=== PATIENT | male | born 1995 ===

== ENCOUNTER 2020-01-12 03:16 | Inpatient (IN) | payer OTHER ==
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
[2020-01-12 04:35] LABS: ABS Basophils 0.1 10^3/ul (0-0.2); ABS Lymphocytes 1.3 10^3/ul (1.0-4.8); ABS Monocytes 0.6 10^3/ul (0-0.8); ABS Neutrophils 7.4 10^3/ul (1.5-7.7); Eosinophil % 0.4 %; Hematocrit 43 % (42-52); Hemoglobin 14.5 g/dL (14.0-18.0); Lymphocyte % 13.7 %; Mean Corpuscular HGB Conc 34 g/dL (31-36); Mean Corpuscular Hemoglobin 27 pg (27-31); Mean Corpuscular Volume 81 fL (80-94); Mean Platelet Volume 10.4 fL (7.4-10.4); Platelet Count 214 10^3/uL (150-450); Red Blood Count 5.33 10^6 /uL (4.18-5.48); Red Cell Distribution Width 15 % (10-15); White Blood Count 9.5 10^3/uL (3.5-10.8)
[2020-01-12 04:45] LABS: Urine Appearance Clear; Urine Bilirubin Negative (Negative); Urine Blood Negative (Negative); Urine Color Yellow; Urine Glucose Negative (Negative); Urine Ketones Negative (Negative); Urine Nitrite Negative (Negative); Urine Protein Negative (Negative); Urine Specific Gravity 1.008 (1.010-1.030); Urine Urobilinogen Negative (Negative)
[2020-01-12 04:56] LABS: ALT 17 U/L (7-52); AST 34 U/L (13-39); Acetaminophen < 15 mcg/mL; Albumin 4.7 g/dL (3.2-5.2); Albumin/Globulin Ratio 1.5 (1-3); Alcohol 118 mg/dL (<10); Alkaline Phosphatase 119 U/L (34-104); Anion Gap 11 mmol/L (2-11); BUN/Creatinine Ratio 14.1 (8-20); Blood Urea Nitrogen 13 mg/dL (6-24); CO2 Carbon Dioxide 23 mmol/L (22-32); Calcium 9.5 mg/dL (8.6-10.3); Chloride 106 mmol/L (101-111); EGFR African American 124.5 (>60); EGFR Non-African American 102.9 (>60); Globulin 3.1 g/dL (2-4); Glucose 90 mg/dL (70-100); Potassium 3.7 mmol/L (3.5-5.0); Salicylate < 2.50 mg/dL (<30); Sodium 140 mmol/L (135-145); Total Protein 7.8 g/dL (6.4-8.9)
[2020-01-12 05:01] LABS: Urine Benzodiazepine Screen None Detected (None Detect); Urine Opiates Screen None Detected (None Detect)
[2020-01-12 05:12] LABS: TSH (Thyroid Stimulating Horm) 3.59 mcIU/mL (0.34-5.60)
--- NOTE | 2020-01-12 08:31 | ED ---
Progress - Progress Note Progress Note: This patient was signed out from Dr. Masterson to Dr. Small at shift change at 0700, pending disposition, awaiting MHE. MHE reveals pt needs to be admitted. The patients condition is stable and will be admitted to the mental health facility at [facility] by Dr. Kimball. Course/Dx - Course Course Of Treatment: This patient was signed out from Dr. Masterson to Dr. Small at shift change at 0700, pending disposition, awaiting MHE. MHE reveals pt needs to be admitted. The patients condition is stable and will be admitted to the mental health facility at [facility] by Dr. Kimball. - Diagnoses Provider Diagnoses: ETOH abuse, Substance induced mood disorder Discharge ED - Sign-Out/Discharge Documenting (check all that apply): Patient Departure - Admit - Discharge Plan Condition: Stable Disposition: PSYCHIATRIC FACILITY-[facility] - Billing Disposition and Condition Condition: STABLE Disposition: Psychiatric Facility [facility] - Attestation Statements Document Initiated by Scribe: Yes Documenting Scribe: Quyen Youngblood Provider For Whom Sherie is Documenting (Include Credential): Billy Small MD Scribe Attestation: Quyen Hurley scribed for Billy Small MD on 01/12/20 at 1745. Scribe Documentation Reviewed: Yes Provider Attestation: The documentation as recorded by the Quyen salas accurately reflects the service I personally performed and the decisions made by Billy alfaro MD Status of Scribe Document: Viewed
[2020-01-12] MEDS ORDERED: Al Hydrox/Mg Hydrox/Simet LIQ* 30 ML UDC PO PRN (14:42)
[2020-01-12] MEDS ORDERED: Acetaminophen TAB* 325 MG PO PRN (14:42)
[2020-01-12] MEDS ORDERED: LORazepam TAB(*) 1 MG ONE (15:04)
[2020-01-12] MEDS ORDERED: Amphetamine MIXED SALT TAB* 10 MG TAB PO PRN (17:13)
[2020-01-12] MEDS ORDERED: Haloperidol TAB* 5 MG PO PRN (17:16)
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
[2020-01-12] MEDS: QUEtiapine TAB* 25 MG PO SCH (20:59)
[2020-01-13] MEDS: LORazepam TAB(*) 1 MG PO PRN ×3 (06:55→20:25)
[2020-01-13] MEDS: Nicotine* 2MG (FRUIT FLAVOR) GUM PO PRN ×5 (06:55→19:02)
[2020-01-13] MEDS: lamoTRIgine TAB(*) 25 MG PO SCH (11:05)
[2020-01-13] MEDS: Vitamin THERAPEUTIC TAB PO SCH (11:06)
[2020-01-13] MEDS: QUEtiapine TAB* 25 MG PO SCH (20:18)
[2020-01-14] MEDS: Nicotine* 2MG (FRUIT FLAVOR) GUM PO PRN ×3 (08:24→12:28)
[2020-01-14] MEDS: lamoTRIgine TAB(*) 25 MG PO SCH (09:08)
[2020-01-14] MEDS: Vitamin THERAPEUTIC TAB PO SCH (09:08)
[2020-01-14 09:47] VITALS: BP 126/76
[2020-01-14 13:36] LABS: Cholesterol 146 mg/dL; HDL Cholesterol 58.8 mg/dL; LDL Cholesterol 76 mg/dL; Triglycerides 56 mg/dL
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
== END 2020-01-14 14:30 | disposition home or self-care (01) | DRG 883 ==
LOC: ED 03:16 → BSU 14:43
PROVIDERS: ADMIT Psychiatry & Neurology Psychiatry; ATTEND Psychiatry & Neurology Psychiatry
DX: F60.3 Borderline personality disorder (principal); R45.851 Suicidal ideations; F90.9 Attention-deficit hyperactivity disorder, unspecified type; F17.210 Nicotine dependence, cigarettes, uncomplicated; S51.812A Laceration without foreign body of left forearm, initial encounter; S81.012A Laceration without foreign body, left knee, initial encounter; F10.10 Alcohol abuse, uncomplicated; Z91.5 Personal history of self-harm; Z28.21 Immunization not carried out because of patient refusal
CPT/HCPCS: 36415; 80053; 80061; 80307; 80320; 80329; 81003; 83036; 84443; 85025; 99222; 99238; 99285; A9270-GY; G0480